=== PATIENT | female | born 1970 | race American Indian/Alaskan Native ===

== ENCOUNTER 2019-03-21 13:20 | Outpatient (CLI) | payer OTHER ==
--- NOTE | 2019-03-22 10:10 | Mammography Report ---
DIGITAL SCREENING MAMMOGRAM WITH CAD, 03/21/2019 INDICATION: Routine screening mammography. TECHNIQUE: Digital bilateral 2D mammography was obtained in the craniocaudal and mediolateral obliq ue projections. This examination was interpreted with the benefit of Computer-Aided Detection analysi s. COMPARISON: None available. FINDINGS: Breast Density: There are scattered areas of fibroglandular density. Left asymmetries require comparison with the prior mammogram or additional imaging. No architectural distortion or suspicious calcifications of the left breast. There is no evidence of dominant mass, mack spicious calcifications or architectural distortion in the right breast. IMPRESSION: Comparison with the previous mammogram is recommended. We will attempt to obtain a prior mammogram for comparison. If we do not obtain a prior mammogram within 30 days, a revised report will be issued recommending a recall for additional imaging. Please be advised that the patient should no t schedule an appointment for return until adequate time (at least 2 weeks) has passed for us to obta in the prior mammogram. Follow up recommendation: Obtain prior study for comparison Category 0: Incomplete. Needs additional imaging evaluation and/or prior mammograms for comparison. A "normal" or negative report should not discourage follow up or biopsy of a clinically significant f inding. A written summary of these findings will be mailed to the patient. The patient will be entered into a mammography reporting system which will generate a reminder letter for the patient's next appointmen t at the appropriate interval. The [employer] recommends yearly mammograms starting at age 40 and continuing as l mindy as a woman is in good health. Breast MRI is recommended for women with an approximate 20-25% or greater lifetime risk of breast cancer, including women with a strong family history of breast or ova salomón cancer or who have been treated for Hodgkin's disease. Signer Name: Bernard Haddad MD Signed: 03/22/2019 10:06 AM Workstation Name: [id number]
== END 2019-03-21 13:21 | disposition home or self-care (01) ==
LOC: SPVWC 13:20
PROVIDERS: ATTEND Internal Medicine
DX: Z12.31 Encounter for screening mammogram for malignant neoplasm of breast (principal)
CPT/HCPCS: 77067

== ENCOUNTER 2019-09-18 12:36 | Outpatient (CLI) | payer OTHER ==
--- NOTE | 2019-09-18 17:33 | Mammography Report ---
LEFT DIGITAL DIAGNOSTIC MAMMOGRAM WITH CAD -- 09/18/2019 LEFT LIMITED BREAST ULTRASOUND INDICATION: Patient presents as a callback from screening mammogram for further evaluation of asymmet dominik densities in the left breast. TECHNIQUE: Digital left mammographic imaging was performed. Spot compression views were obtained. Li mited ultrasound was performed. This examination was interpreted with the benefit of Computer-Aided D etection (CAD) analysis. COMPARISON: Prior mammogram 03/21/2019 FINDINGS: Breast Density: There are scattered areas of fibroglandular density. MAMMOGRAPHIC FINDINGS: The previously described focal asymmetric densities, one in the 1:00 position, middle depth, and one in the 9 to 10:00 position, posterior depth, are much less conspicuous on kristine tional views suggesting a benign etiology. Targeted ultrasound performed for further evaluation. ULTRASOUND FINDINGS: Targeted ultrasound evaluation was performed of the area of interest. Correspo nding with the 10:00 focal asymmetric density seen mammographically, there is a benign simple cyst se en in the left breast 10:00 position located 8 cm from the nipple measuring up to 5 x 3 x 4 mm. No so nographic abnormality is identified to account for the 1:00 focal asymmetric density. IMPRESSION: 1. A benign simple cyst accounts for one of the focal asymmetric densities in the left breast. The ad ditional focal asymmetric density seen mammographically is much less conspicuous on additional views and without sonographic correlate, compatible with overlapping fibroglandular tissue. No suspicious m ammographic or sonographic abnormality identified. Follow up recommendation: Back to schedule. BI-RADS Category 2: Benign. A "normal" or negative report should not discourage follow up or biopsy of a clinically significant f inding. A written summary of these findings will be mailed to the patient. The patient will be entered into a mammography reporting system which will generate a reminder letter for the patient's next appointmen t at the appropriate interval. According to the [employer], yearly mammograms are recommended starting at age 40 and continuing as long as a woman is in good health. Breast MRI is recommended for women with an tanika roximately 20-25% or greater lifetime risk of breast cancer, including women with a strong family his tory of breast or ovarian cancer and women who have been treated for Hodgkin's disease. Signer Name: Lalitha Harvey MD Signed: 09/18/2019 5:29 PM Workstation Name: [id number]
== END 2019-09-18 12:37 | disposition home or self-care (01) ==
LOC: SPVWC 12:36
DX: N60.02 Solitary cyst of left breast (principal); N64.89 Other specified disorders of breast

== ENCOUNTER 2020-05-28 06:32 | Observation (INO) | payer BC, OTHER ==
--- NOTE | 2020-05-26 11:43 | Anesthesia Consultation ---
Anesthesia Consult and Med Hx Date of service: 05/28/20 - Airway Anesthetic Teeth Evaluation: Crowns ROM Head & Neck: Adequate Mental/Hyoid Distance: Adequate Mallampati Class: Class II Intubation Access Assessment: Good - Pre-Operative Health Status ASA Pre-Surgery Classification: ASA3 Proposed Anesthetic Plan: General Nerve Block: TAP - Pulmonary Hx Asthma: Yes (Last used inhaler 2 yrs ago) Hx Respiratory Symptoms: No (+2FS) Hx Sleep Apnea: Yes - Central Nervous System Hx Neuromuscular Disorder: Yes (Migraines) Hx Psychiatric Problems: Yes (Depression/Anxiety) - Gastrointestinal Hx Gastroesophageal Reflux Disease: Yes (Rare) - Endocrine Hx Renal Disease: No Hx Non-Insulin Dependent Diabetes: No Hx Thyroid Disease: No - Hematic Hx Anemia: Yes Hx Sickle Cell Disease: No - Other Systems Hx Alcohol Use: Yes (Daily wine/liquor) Hx Cancer: No Hx Obesity: Yes
[2020-05-26 12:06] LABS: Basophils # (Auto) 0.1 K/mm3 (0.0-0.1); Eosinophils # (Auto) 0.2 K/mm3 (0.0-0.4); Eosinophils % (Auto) 2.2 % (0.0-4.3); Hemoglobin 10.1 gm/dl (10.1-14.3); Lymphocytes # (Auto) 1.9 K/mm3 (1.2-5.4); Lymphocytes % (Auto) 26.8 % (13.4-35.0); Mean Corpuscular HGB Conc 32 % (30-34); Mean Corpuscular Volume 78 fl (79-97); Monocytes # (Auto) 0.5 K/mm3 (0.0-0.8); Monocytes % (Auto) 6.9 % (0.0-7.3); Platelet Count 251 K/mm3 (140-440); Red Blood Count 4.08 M/mm3 (3.65-5.03)
[~2020-05-28 06:32] MED LIST: ACETAMINOPHEN 500 MG TAB PO SCH; CELECOXIB 200 MG CAP PO NR; GABAPENTIN 300 MG CAP PO NR; LACTATED RINGERS 1,000 ML IV SCH; MAGNESIUM OXIDE 400 MG TAB PO SCH; MIDAZOLAM 2 MG/2 ML INJ IV NR; fentaNYL 100 MCG/2 ML INJ IV SCH
[2020-05-28] MEDS ORDERED: ceFAZolin/STERILE WATER 2 GM/20 ML SYRINGE IV NR (07:00)
[2020-05-28] MEDS ORDERED: BUPIVACAINE/PF (0.25%) 2.5 MG/ML 30 ML VIAL INFILTRATI ONE (07:43)
[2020-05-28] MEDS ORDERED: LIDOCAINE (1%) 10 MG/1 ML VIAL 20 ML MDV ONE (07:43)
[2020-05-28] MEDS ORDERED: SODIUM CHLORIDE 0.9% 500 ML 500 ML ONE (07:43)
[2020-05-28] MEDS ORDERED: dexAMETHasone 20 MG/5 ML VIAL ONE (07:43)
--- NOTE | 2020-05-28 07:56 | Anesthesia Day of Surgery ---
Anesthesia Day of Surgery - Day of Surgery Patient Examined: Yes Patient H&P Reviewed: Yes Patient is NPO: Yes
[2020-05-28] MEDS ORDERED: diphenhydrAMINE 50 MG/ML VIAL ONE ×2 (08:43→18:12)
[2020-05-28] MEDS ORDERED: diphenhydrAMINE 50 MG/ML VIAL IV NR (08:47)
--- NOTE | 2020-05-28 09:15 | History and Physical Report ---
History of Present Illness Date of examination: 05/28/20 Date of admission: 05/28/2020 Chief complaint: uterine fibroids History of present illness: 50y/o with symptomatic uterine fibroids. The patient has had a myomectomy in the past. Currently ultrasound reveals a markedly enlarged fibroid uterus measuring 18.9cm with a pedunculated myoma 10.8cm. The patient elects for definitive surgical management. Past History Past Medical History: other (IBS, fibroids) Past Surgical History: other (myomectomy; hernia repair) Social history: no significant social history - Obstetrical History : 1 Para: 0 Hx # Term Pregnancies: 0 Number of Pregnancies: 0 Spontaneous Abortions: 0 Induced : 1 Number of Living Children: 0 Medications and Allergies Allergies Allergy/AdvReac Type Severity Reaction Status Date / Time latex Allergy Hives Verified 05/23/20 15:37 morphine Allergy Swelling Verified 05/23/20 15:37 shellfish derived Allergy Anaphylaxis Verified 05/23/20 15:37 Home Medications Medication Instructions Recorded Confirmed Last Taken Type Albuterol Sulfate [Proventil Hfa] 2 puff IH Q4H PRN 05/23/20 05/23/20 Unknown History Bupropion HCl [Wellbutrin XL] 300 mg PO QAM 05/23/20 05/23/20 Unknown History SUMAtriptan succinate [SUMAtriptan 50 mg PO DAILY PRN 05/23/20 05/23/20 Unknown History Succinate] Topiramate [Topamax] 50 mg PO DAILY PRN 05/23/20 05/23/20 Unknown History Active Meds: Active Medications Acetaminophen (Acetaminophen 500 Mg Tab) 1,000 mg PO ONCE RAQUEL Stop: 05/28/20 21:00 Cefazolin Sodium (Cefazolin/Sterile Water 2 Gm/20 Ml Syringe) 2 gm IV PREOP NR Stop: 05/28/20 23:45 Celecoxib (Celecoxib 200 Mg Cap) 400 mg PO PREOP NR Stop: 05/28/20 21:00 Diphenhydramine HCl (Diphenhydramine 50 Mg/Ml Vial) 12.5 mg IV ONCE NR Stop: 05/28/20 12:00 Fentanyl (Fentanyl 100 Mcg/2 Ml Inj) 100 mcg IV ONCE RAQUEL Stop: 05/28/20 21:00 Gabapentin (Gabapentin 300 Mg Cap) 600 mg PO PREOP NR Stop: 05/28/20 21:00 Lactated Ringer's (Lactated Ringers) 1,000 mls @ 125 mls/hr IV DIRECT RAQUEL Magnesium Oxide (Magnesium Oxide 400 Mg Tab) 400 mg PO ONCE RAQUEL Stop: 05/28/20 21:00 Midazolam HCl (Midazolam 2 Mg/2 Ml Inj) 2 mg IV PREOP NR Stop: 05/28/20 23:59 Review of Systems All systems: negative Genitourinary: vaginal bleeding, pelvic pain - Vital Signs Vital signs: Vital Signs Temp Pulse Resp BP Pulse Ox 98.2 F 78 18 128/87 100 05/26/20 11:00 05/26/20 11:00 05/26/20 11:00 05/26/20 11:00 05/26/20 11:00 Temp Pulse Resp BP Pulse Ox 98.2 F 78 18 128/87 100 05/26/20 11:00 05/26/20 11:00 05/26/20 11:00 05/26/20 11:00 05/26/20 11:00 - Physical Exam Breasts: Positive: deferred Cardiovascular: Regular rate Lungs: Positive: Clear to auscultation Abdomen: Positive: mass Results Result Diagrams: 05/26/20 11:15 All other labs normal. Assessment and Plan - Patient Problems (1) Uterine fibroid Current Visit: Yes Status: Acute Plan to address problem: scheduled for a robotic hysterectomy and bilateral salpingectomy (2) Menorrhagia Current Visit: Yes Status: Acute (3) Pelvic pain Current Visit: Yes Status: Acute
[2020-05-28] MEDS ORDERED: ceFAZolin/Water 2 GM/20 ML 2 GM/20 ML SYRINGE IV NR (10:00)
[2020-05-28] MEDS ORDERED: LIDOCAINE MPF (2%) 20 MG/1 ML VIAL 5 ML ONE (11:43)
[2020-05-28] MEDS ORDERED: ROCURONIUM 50 MG/5 ML INJ IV ONE (11:43)
[2020-05-28] MEDS ORDERED: propofoL 200 MG/20 ML VIAL IV ONE (11:43)
[2020-05-28] MEDS ORDERED: HYDROmorphone 1 MG/1 ML INJ ONE (11:43)
[2020-05-28] MEDS ORDERED: NEOMY 40 MG/POLYMYXIN B 200,000 UNITS/ML (GU) AMPULE IR ONE ×2 (11:55→12:43)
[2020-05-28] MEDS ORDERED: SODIUM CHLORIDE 0.9% IRRIG SOLN 2000 ML IR ONE (12:43)
[2020-05-28] MEDS ORDERED: SODIUM CHLORIDE 0.9% IRR 1,500 ML BOTTLE IR ONE (12:43)
[2020-05-28] MEDS ORDERED: KETOROLAC 30 MG/1 ML INJ ONE (14:54)
[2020-05-28] MEDS ORDERED: ONDANSETRON 4 MG/2 ML INJ ONE (14:54)
[2020-05-28] MEDS ORDERED: PHENYLEPHRINE/NS 1,000 MCG/10 ML SYRINGE (OR USE) IV ONE ×2 (14:54)
[2020-05-28] MEDS ORDERED: NEOSTIGMINE 10MG/10 ML INJ MDV ONE (14:56)
[2020-05-28] MEDS ORDERED: GLYCOPYRROLATE 0.4 MG/2 ML INJ ONE (14:56)
--- NOTE | 2020-05-28 15:00 | Operative Report ---
Operative Report Operative Report: Date of surgery: May 28, 2020 Preoperative diagnoses: Symptomatic uterine fibroids; menorrhagia; dysmenorrhea Postoperative diagnoses: Same as above Procedure: Robotic hysterectomy; bilateral salpingectomy; lysis of adhesions Surgeon: Earnestine Jules M.D. [employer] Monitoring Technician: Shirlene Wills Anesthesia: Gen. endotracheal anesthesia Estimated blood loss: 100 mL Pathology: Uterus, cervix, leiomyomas, bilateral tubes Indication: 50-year-old -0-1-0 with symptomatic uterine fibroids. The king ent is elected to undergo definitive surgical management. Procedure: The patient was taken to the operating room and given general endotracheal anesthesia without complication after a time out was performed confirming the surgery and identity of the patient. She was prepped and draped in a normal sterile fashion. A bivalve speculum was placed in the patient's vagina and a single-tooth tenaculum placed on the anterior lip of the cervix. The uterus was sounded with the uterine sound. A stay suture with 0-vicryl was placed at 12 o'clock on the anterior cervix. A Velomedix uterine manipulator was placed in the bivalve speculum was then removed. A warm laparotomy sponge was placed in the vagina. Attention was then turned to the patient's abdomen where a 12millimeter supra umbilical skin incision was then made. A Veress needle was placed and peritoneal entry was verified water-filled syringe. Insufflation of the peritoneal cavity was performed with CO2 gas. The 12 mm trocar was then placed under direct visualization. An additional 8 mm robotic trocar was placed on the patient's left and right lateral side just opposite of the supraumbilical trocar. An additional 5 mm right lateral trocar was then placed as the accessory port. The supraumbilical 12 mm trocar site was closed with the Andres Ugalde device and 0-vicryl suture. The patient was then placed in steep Trendelenburg. The da Elan robot was then engaged. A fenestrated forcep was placed in arm 2 and a vessel sealer was placed in arm 1. General survey of the abdomen and pelvis revealed multiple omental adhesions to the anterior abdominal wall. The monopolar scissors were used in order to lyse the adhesions. The uterus was markedly enlarged with multiple leiomyomas. The tubes and ovaries were normal in appearance. The surgeon then transferred to the surgical console. The mesosalpinx was then isolated on the right. The vessel sealer was used to coagulate the mesosalpinx which was then transected. The tube was transected from the ovary. The tubo-ovarian ligament was then coagulated and transected. The round ligament was then coagulated and transected also. The vesicouterine peritoneum was then entered from the patient's right side. The uterine vessels were then coagulated with the vessel sealer. The vessels were then transected . Attention was then turned to the patient's left side where the tubo-ovarian ligament and mesosalpinx were again isolated coagulated and transected. The vesical peritoneum was then entered from the left and joined in the midline. Peritoneum was reflected off of the lower uterine segment. Uterine vessels were then coagulated and then transected. The blood supply to the uterus was adequately contained, a posterior colpotomy was made. The V care ring was visualized. Leiomyomas were extracted from the uterus in order to improve the ability to visualize the posterior cul-de-sac. Posterior colpotomy was created with the monopolar scissors. The incision was continued circumferentially until anterior colpotomy was made. The cervix and uterus were amputated from the vaginal cuff. The uterus had to be bivalved. The uterus was then removed along with the tubes bilaterally through the vagina and a warm laparotomy sponge was placed and maintain the pneumoperitoneum. The vaginal cuff was then closed in a running fashion with V lock suture. Irrigation of the pelvis was performed. Hemoblast was applied to the incision. The Thumb Friendlyi robot was undocked. The trocars were removed and the insuffliation was released. The skin was then reapproximated with 4-0 Monocryl. The tissue was sent to pathology which included the cervix, leiomyomas, bilateral tubes and uterus. The patient was then successfully extubated. She was then taken to the recovery room in stable condition. All sponge laps and needle counts were correct x2.
[2020-05-28] MEDS ORDERED: ONDANSETRON 4 MG/2 ML INJ IV PRN (15:38)
[2020-05-28] MEDS ORDERED: HYDROmorphone 1 MG/1 ML INJ IV PRN (15:38)
[2020-05-28] MEDS: HYDROmorphone 1 MG/1 ML INJ IV PRN ×2 (15:40→16:02)
--- NOTE | 2020-05-28 17:01 | Post Anesthesia Evaluation ---
- Post Anesthesia Evaluation Patient Participated: Yes Airway Patent: Yes Stable Respiratory Function: Yes Nausea/Vomiting: No Temp > 96.8F: Yes Pain Manageable: Yes Adequeate Hydration: Yes Anesthesia Complications: No Block Receding Appropriately: Yes Patient on Ventilator: No
[2020-05-28] MEDS ORDERED: HYDROmorphone 2 MG/1 ML INJ ONE (17:41)
[2020-05-28] MEDS ORDERED: IBUPROFEN 800 MG TAB PO PRN (17:50)
[2020-05-28] MEDS ORDERED: LACTATED RINGERS 1,000 ML IV SCH (18:00)
[2020-05-28] MEDS ORDERED: diphenhydrAMINE 50 MG/ML VIAL IV PRN (18:15)
[2020-05-28 18:33] LABS: Hematocrit 30.9 % (30.3-42.9); Hemoglobin 9.6 gm/dl (10.1-14.3)
[2020-05-28] MEDS: oxyCODONE /ACETAMINOPHEN 5-325MG TAB PO PRN (21:11)
[2020-05-29] MEDS: oxyCODONE /ACETAMINOPHEN 5-325MG TAB PO PRN ×2 (04:44→09:54)
--- NOTE | 2020-05-29 07:55 | Progress Note ---
Assessment and Plan - Patient Problems (1) Uterine fibroid Current Visit: Yes Status: Acute Plan to address problem: Patient doing well Discharge home (2) Menorrhagia Current Visit: Yes Status: Acute (3) Pelvic pain Current Visit: Yes Status: Acute Subjective - Subjective Date of service: 05/29/20 Interval history: The patient reports having some right shoulder pain. She has been tolerating clear diet without complication. Her Suarez has been removed. Details of her surgery were discussed. Patient reports: appetite normal, pain well controlled Objective - Vital Signs Latest vital signs: Vital Signs Temp Pulse Pulse Resp BP BP Pulse Ox 05/29/20 06:51 18 05/29/20 06:13 18 05/29/20 05:46 98.2 F 84 20 125/84 97 05/29/20 04:44 18 05/29/20 01:56 98.2 F 76 20 118/63 98 05/28/20 22:11 18 05/28/20 21:16 18 98 05/28/20 21:11 18 05/28/20 20:10 98.6 F 77 18 107/58 96 05/28/20 20:00 80 18 99 05/28/20 18:45 98.0 F 77 18 112/63 100 05/28/20 18:40 76 16 106/48 98 05/28/20 18:15 97.7 F 78 14 103/43 100 05/28/20 18:10 14 05/28/20 18:00 76 12 102/56 100 05/28/20 17:45 77 15 119/71 100 05/28/20 17:40 14 05/28/20 17:30 79 12 100/51 100 05/28/20 17:15 98.1 F 76 13 105/68 98 05/28/20 17:00 80 14 92/51 97 05/28/20 16:45 82 12 111/71 96 05/28/20 16:32 12 05/28/20 16:30 78 12 111/71 98 05/28/20 16:15 97.9 F 77 12 102/57 96 05/28/20 16:00 82 12 108/59 99 05/28/20 15:45 80 11 L 102/63 100 05/28/20 15:40 12 05/28/20 15:35 80 12 106/65 100 05/28/20 15:30 78 12 110/54 100 05/28/20 15:25 75 12 104/47 100 05/28/20 15:20 74 10 L 98/48 100 05/28/20 15:15 75 11 L 93/47 100 05/28/20 15:11 97.3 F L 75 11 L 85/46 100 05/28/20 08:55 14 05/28/20 08:52 70 12 108/70 100 05/28/20 08:47 69 11 L 112/73 99 05/28/20 08:45 14 05/28/20 08:42 71 12 113/68 98 05/28/20 08:37 71 11 L 96/66 98 05/28/20 08:32 72 11 L 94/65 99 05/28/20 08:17 73 16 112/73 99 05/28/20 08:12 75 16 110/68 99 05/28/20 08:07 73 15 109/69 97 05/28/20 08:02 71 14 105/69 99 05/28/20 07:57 71 16 110/68 99 05/28/20 07:55 16 Intake and Output 05/28/20 05/29/20 05/29/20 22:59 06:59 14:59 Intake Total 3380 480 Output Total 500 1500 Balance 2880 -1020 Intake: IV 3000 Oral 380 480 Output: Urine 500 1500 Indwelling Catheter 1500 Other: Total, Intake Amount 380 240 Total, Output Amount 600 Voiding Method Indwelling Catheter - Exam Abdomen: Present: normal appearance, soft - Labs Labs: Abnormal lab results 05/28/20 Range/Units 18:30 Hgb 9.6 L (10.1-14.3) gm/dl
--- NOTE | 2020-05-29 07:57 | Discharge Summary ---
Providers - Providers Date of Admission: 05/28/20 17:41 Date of discharge: 05/29/20 Attending physician: GATO DAVID Primary care physician: REMELTER Hospitalization Reason for admission: other (Symptomatic uterine fibroid) Procedure: other (Robotic hysterectomy and bilateral salpingectomy) Discharge diagnosis: other (Symptomatic uterine fibroids) Hospital course: The patient was admitted for robotic hysterectomy and bilateral salpingectomy for symptomatic uterine fibroids. Please see operative note for details of surgery. Postoperative course is complicated by hypotensive episodes in the recovery room.. The patient was admitted for observation. Her hemodynamic status remained within normal limits. She had improvement in her blood pressures at the time of discharge. Condition at discharge: Good Disposition: DC-01 TO HOME OR SELFCARE - Discharge Diagnoses (1) Uterine fibroid Status: Acute (2) Menorrhagia Status: Acute (3) Pelvic pain Status: Acute Plan - Provider Discharge Summary Activity: no sex for 6 weeks, no heavy lifting 4 weeks, no strenuous exercise Diet: routine Instructions: routine Additional instructions: [] Smoking cessation referral if applicable(refer to patient education folder for contact #) [] Refer to [facility] Booklet Call your doctor immediately for: * Fever > 100.5 * Heavy vaginal bleeding ( >1 pad per hour) * Severe persistent headache * Shortness of breath * Reddened, hot, painful area to leg or breast * Drainage or odor from incision. * Keep incision clean and dry at all times and follow doctor's instructions regarding bathing/showering Schedule postop operative visit in 4 weeks - Follow up plan
[2020-05-29] MEDS ORDERED: SIMETHICONE 80 MG CHEW TAB PO PRN (09:00)
[2020-05-29 09:11] VITALS: BP 112/71
== END 2020-05-29 11:15 | disposition home or self-care (01) ==
LOC: OR 06:32 → OB 17:41
PROVIDERS: ADMIT Obstetrics & Gynecology; ATTEND Obstetrics & Gynecology
DX: D25.9 Leiomyoma of uterus, unspecified (principal); N92.0 Excessive and frequent menstruation with regular cycle; R10.2 Pelvic and perineal pain; K58.9 Irritable bowel syndrome, unspecified; Z90.710 Acquired absence of both cervix and uterus; Z98.890 Other specified postprocedural states
CPT/HCPCS: 36415; 58573; 64450; 84703; 85014; 85018; 85025; 86850; 86900; 86901; 88302; 88307; 96374; 96375; 96376; A4217; G0378; J0690; J1100; J1170; J1200; J1885; J2250; J2370; J2405; J2704; J2710; J3010; J7040; J7120; S2900